=== PATIENT | male | born 1940 | race Caucasian/White ===

== ENCOUNTER 2016-09-26 07:19 | Emergency (ER) | payer MEDICARE, OTHER ==
[~2016-09-26] VITALS: Ht 177.8 cm; Wt 81.8 kg
[~2016-09-26 07:19] MED LIST: ASPIRIN E.C. 8181 MG PO; GLUCOPHAGE500 MG/TAB PO; GRALISE300 MG PO; LASIX 40MG TABL40 MG PO; LIPITOR 80MG80 MG PO; NITROSTAT0.4 MG/TAB PO; PLAVIX 75MG TAB75 MG PO; PLENDIL10 MG PO; PRILOSEC 20MG20 MG PO; PRINIVIL2.5 MG PO; TOPROL XL 50MG50 MG PO; ULTRAM 50MG TAB50 MG PO
[2016-09-26 07:21] VITALS: TEMP 97.7
[2016-09-26 08:13] LABS: ARTERIAL BLD GAS O2 SATURATION 87.7 % (92-100); ARTERIAL BLD GAS TCO2 CT 22.8; ARTERIAL BLOOD GAS BASE EXCESS -2.8 (-2-2); ARTERIAL BLOOD GAS HCO3 21.7 meq/L (22-26); ARTERIAL BLOOD GAS PHT 7.39 C (7.35-7.45); ARTERIAL BLOOD GAS PO2 50.7 mmHg (80-100); ARTERIAL BLOOD GAS PO2T 50.7 (80-100); ARTERIAL BLOOD GAS pH 7.39 (7.35-7.45); OXYHEMOGLOBIN 85.9 %
[2016-09-26 08:14] LABS: ATS? YES
[2016-09-26 08:19] LABS: BASO % 0.2 % (0.0-2.0); EOS # 0.1 (0.0-0.7); EOS % 0.4 % (0-4.0); GRAN # 11.5 (1.4-6.5); LYMPH # 1.4 (1.2-3.4); LYMPH % 9.9 % (20.0-51.0); MEAN CELL VOLUME 87 fl (80.0-100.0); MEAN CORPUSCULAR HGB CONC 32 g/dl (33.0-37.0); MEAN PLATELET VOLUME 13.5 fl (7.4-10.4); MONO # 0.8 (0.1-0.6); PLATELET COUNT 161 K/mm3 (130-400); RED BLOOD COUNT 3.73 M/mm3 (4.20-5.60); REDCELL DISTRIBUTION WIDTH-CV 15.1 % (11.5-14.5); WHITE BLOOD COUNT 13.9 K/mm3 (4.8-10.8)
[2016-09-26 08:20] VITALS: BP 137/53; PULSE 58
[2016-09-26 08:20] LABS: HEMATOCRIT 32.5 % (42.0-52.0); HEMOGLOBIN 10.5 g/dl (13.5-18.0); MEAN CORPUSCULAR HEMOGLOBIN 28 pg (27.0-31.0)
[2016-09-26 08:24] LABS: ADJUSTED CALCIUM 8.9 mg/dL (8.4-10.2); BILIRUBIN,TOTAL 0.7 mg/dL (0.0-1.0); CALCIUM 8.1 mg/dL (8.4-10.2); CREATININE, serum 1.09 mg/dL (0.66-1.25); POTASSIUM 3.4 mmol/L (3.4-5.0); TOTAL PROTEIN 5.6 gm/dL (6.4-8.2)
[2016-09-26 08:35] LABS: TROPONIN-I 0.016 ng/mL (0.000-0.034)
== END 2016-09-26 08:32 | disposition short-term general hospital (02) ==
LOC: COL.ER 07:19
PROVIDERS: Family Medicine
DX: I63.9 Cerebral infarction, unspecified (principal)
CPT/HCPCS: J1644; J3101; J7030

== ENCOUNTER 2016-12-04 07:12 | Emergency (ER) | payer MEDICARE, OTHER ==
[~2016-12-04] VITALS: Ht 177.8 cm; Wt 81.8 kg
[2016-12-04 07:14] VITALS: TEMP 98.7
[2016-12-04 07:50] LABS: BASO # 0.1 (0.0-0.2); BASO % 0.4 % (0.0-2.0); EOS # 0.1 (0.0-0.7); EOS % 0.7 % (0-4.0); GRAN # 9.6 (1.4-6.5); GRAN % 81.9 % (42.2-75.2); LYMPH # 1.2 (1.2-3.4); LYMPH % 10.5 % (20.0-51.0); MEAN CELL VOLUME 87 fl (80.0-100.0); MEAN CORPUSCULAR HGB CONC 32 g/dl (33.0-37.0); MONO # 0.7 (0.1-0.6); MONO % 6.1 % (1.7-9.3); PLATELET COUNT 178 K/mm3 (130-400); RED BLOOD COUNT 4.08 M/mm3 (4.20-5.60); REDCELL DISTRIBUTION WIDTH-CV 15.3 % (11.5-14.5); WHITE BLOOD COUNT 11.7 K/mm3 (4.8-10.8)
[2016-12-04 08:06] LABS: ADJUSTED CALCIUM 9.3 mg/dL (8.4-10.2); ALBUMIN 3.9 gm/dL (3.5-5.0); BILIRUBIN,TOTAL 0.7 mg/dL (0.0-1.0); C-REACTIVE PROTEIN 0.7 mg/dL (0.0-0.9); CALCIUM 9.2 mg/dL (8.4-10.2); CREATININE, serum 1.18 mg/dL (0.66-1.25); POTASSIUM 3.9 mmol/L (3.4-5.0); TOTAL PROTEIN 6.7 gm/dL (6.4-8.2)
[2016-12-04 08:15] LABS: TROPONIN-I 0.021 ng/mL (0.000-0.034)
[2016-12-04 08:20] LABS: PROLACTIN 43.9 ng/mL (3.7-17.9)
[2016-12-04 08:29] LABS: HEMATOCRIT 35.4 % (42.0-52.0); HEMOGLOBIN 11.3 g/dl (13.5-18.0); MEAN CORPUSCULAR HEMOGLOBIN 28 pg (27.0-31.0)
[2016-12-04 08:54] LABS: PROTHROMBIN TIME 11.6 SECONDS (9.7-12.8)
[2016-12-04 08:57] LABS: PARTIAL THROMBOPLASTIN TIME 31.9 SECONDS (26.0-37.0)
[2016-12-04 09:29] VITALS: BP 171/63; PULSE 62
== END 2016-12-04 10:00 | disposition left against medical advice (07) ==
LOC: COL.ER 07:12
PROVIDERS: Emergency Medicine
DX: R55 Syncope and collapse (principal); Z53.21 Procedure and treatment not carried out due to patient leaving prior to being seen by health care provider; I25.10 Atherosclerotic heart disease of native coronary artery without angina pectoris; E11.9 Type 2 diabetes mellitus without complications; I10 Essential (primary) hypertension; I48.91 Unspecified atrial fibrillation; F17.210 Nicotine dependence, cigarettes, uncomplicated; Z95.5 Presence of coronary angioplasty implant and graft; Z79.84 Long term (current) use of oral hypoglycemic drugs; Z79.02 Long term (current) use of antithrombotics/antiplatelets
CPT/HCPCS: J7030

== ENCOUNTER 2017-01-25 05:59 | Emergency (ER) | payer MEDICARE, OTHER ==
[2017-01-25 06:29] VITALS: TEMP 96.6
[2017-01-25 06:37] LABS: BASO % 0.5 % (0.0-2.0); EOS # 0.2 (0.0-0.7); EOS % 1.9 % (0-4.0); GRAN # 6.2 (1.4-6.5); GRAN % 72.7 % (42.2-75.2); LYMPH # 1.3 (1.2-3.4); LYMPH % 15.5 % (20.0-51.0); MEAN CELL VOLUME 83 fl (80.0-100.0); MEAN CORPUSCULAR HGB CONC 33 g/dl (33.0-37.0); MEAN PLATELET VOLUME 11.7 fl (7.4-10.4); MONO # 0.8 (0.1-0.6); PLATELET COUNT 230 K/mm3 (130-400); REDCELL DISTRIBUTION WIDTH-CV 15.7 % (11.5-14.5); WHITE BLOOD COUNT 8.5 K/mm3 (4.8-10.8)
[2017-01-25 06:39] LABS: HEMOGLOBIN 9.8 g/dl (13.5-18.0); MEAN CORPUSCULAR HEMOGLOBIN 27 pg (27.0-31.0)
[2017-01-25 06:48] LABS: ADJUSTED CALCIUM 9.1 mg/dL (8.4-10.2); ALANINE AMINOTRANSFERASE 19 U/L (21-72); ALBUMIN 3.6 gm/dL (3.5-5.0); ALKALINE PHOSPHATASE 57 U/L (50-136); ANION GAP 10 mmol/L (7-16); BILIRUBIN,TOTAL 0.6 mg/dL (0.0-1.0); BLOOD UREA NITROGEN 21 mg/dL (9-20); CALCIUM 8.8 mg/dL (8.4-10.2); CARBON DIOXIDE 27 mmol/L (22-30); CHLORIDE 101 mmol/L (98-107); CREATININE, serum 1.04 mg/dL (0.66-1.25); GLUCOSE 128 mg/dL (74-106); POTASSIUM 4.3 mmol/L (3.4-5.0); SODIUM 138 mmol/L (137-145); TOTAL PROTEIN 6.5 gm/dL (6.4-8.2)
[2017-01-25 06:59] LABS: TROPONIN-I 0.012 ng/mL (0.000-0.034)
[2017-01-25 07:43] LABS: PH 7 (5-8); SQUAMOUS EPITHELIAL None Seen /hpf; URINE APPEARANCE Clear; URINE BACTERIA None Seen /hpf; URINE BILIRUBIN Negative (NEGATIVE); URINE BLOOD Negative (NEGATIVE); URINE COLOR Yellow; URINE GLUCOSE Negative (NEGATIVE); URINE KETONE Negative (NEGATIVE); URINE RBC None Seen /hpf; URINE UROBILINOGEN >=4.0 mg/dL (NEGATIVE); URINE WBC 0-2 /hpf
[2017-01-25 08:30] LABS: CREATINE KINASE 48 U/L (55-170)
[2017-01-25 13:46] VITALS: BP 186/80; PULSE 64
== END 2017-01-25 14:00 | disposition home or self-care (01) ==
LOC: COL.ER 05:59
PROVIDERS: Emergency Medicine
DX: R53.1 Weakness (principal); E11.9 Type 2 diabetes mellitus without complications; I10 Essential (primary) hypertension; M48.56XD Collapsed vertebra, not elsewhere classified, lumbar region, subsequent encounter for fracture with routine healing; I51.9 Heart disease, unspecified; Z79.84 Long term (current) use of oral hypoglycemic drugs
CPT/HCPCS: J7030

== ENCOUNTER 2017-02-13 17:45 | Emergency (ER) | payer MEDICARE, OTHER ==
[2017-02-13 17:46] VITALS: TEMP 97
[2017-02-13 20:16] LABS: BASO % 0.2 % (0.0-2.0); GRAN # 9.9 (1.4-6.5); GRAN % 84.6 % (42.2-75.2); LYMPH # 0.8 (1.2-3.4); LYMPH % 6.7 % (20.0-51.0); MEAN CELL VOLUME 83 fl (80.0-100.0); MEAN CORPUSCULAR HGB CONC 32 g/dl (33.0-37.0); MEAN PLATELET VOLUME 12.3 fl (7.4-10.4); MONO # 0.9 (0.1-0.6); MONO % 7.8 % (1.7-9.3); PLATELET COUNT 246 K/mm3 (130-400); RED BLOOD COUNT 3.94 M/mm3 (4.20-5.60); REDCELL DISTRIBUTION WIDTH-CV 15.4 % (11.5-14.5); WHITE BLOOD COUNT 11.7 K/mm3 (4.8-10.8)
[2017-02-13 20:19] LABS: HEMATOCRIT 32.7 % (42.0-52.0); HEMOGLOBIN 10.6 g/dl (13.5-18.0); MEAN CORPUSCULAR HEMOGLOBIN 27 pg (27.0-31.0)
[2017-02-13 20:24] LABS: INR 1.1 (0.8-3.0); PROTHROMBIN TIME 12.6 SECONDS (9.7-12.8)
[2017-02-13 20:26] LABS: PARTIAL THROMBOPLASTIN TIME 31.4 SECONDS (26.0-37.0)
[2017-02-13 20:31] LABS: ADJUSTED CALCIUM 9.5 mg/dL (8.4-10.2); ALBUMIN 3.8 gm/dL (3.5-5.0); BILIRUBIN,TOTAL 1.1 mg/dL (0.0-1.0); CALCIUM 9.3 mg/dL (8.4-10.2); CREATININE, serum 0.87 mg/dL (0.66-1.25); POTASSIUM 3.5 mmol/L (3.4-5.0); TOTAL PROTEIN 6.9 gm/dL (6.4-8.2)
[2017-02-13 20:47] LABS: TROPONIN-I 0.065 ng/mL (0.000-0.034)
[2017-02-13 23:29] VITALS: BP 122/76; PULSE 80
== END 2017-02-13 23:30 | disposition short-term general hospital (02) ==
LOC: COL.ER 17:45
PROVIDERS: Emergency Medicine
DX: I63.9 Cerebral infarction, unspecified (principal); R53.1 Weakness; R53.81 Other malaise; I25.2 Old myocardial infarction; Z86.73 Personal history of transient ischemic attack (TIA), and cerebral infarction without residual deficits; S80.212A Abrasion, left knee, initial encounter; S80.211A Abrasion, right knee, initial encounter; X58.XXXA Exposure to other specified factors, initial encounter; Y92.009 Unspecified place in unspecified non-institutional (private) residence as the place of occurrence of the external cause; R40.2412 Glasgow coma scale score 13-15, at arrival to emergency department; Z79.02 Long term (current) use of antithrombotics/antiplatelets; Z79.82 Long term (current) use of aspirin
CPT/HCPCS: J7030

== ENCOUNTER 2017-03-17 11:12 | Inpatient (IN) | payer MEDICARE, OTHER ==
[~2017-03-17] VITALS: Ht 180.3 cm; Wt 78.3 kg
[2017-03-17] VITALS (345 sets, daily range): BP systolic 108–167; BP diastolic 28–70; PULSE 55–93; TEMP 98–98.8; O2SAT 86–100
[2017-03-17 12:12] LABS: MEAN CELL VOLUME 88 fl (80.0-100.0); MEAN CORPUSCULAR HGB CONC 32 g/dl (33.0-37.0); MEAN PLATELET VOLUME 12.5 fl (7.4-10.4); PLATELET COUNT 255 K/mm3 (130-400); RED BLOOD COUNT 2.77 M/mm3 (4.20-5.60); REDCELL DISTRIBUTION WIDTH-CV 17.7 % (11.5-14.5)
[2017-03-17 12:14] LABS: INR 1.1 (0.8-3.0); PROTHROMBIN TIME 12.3 SECONDS (9.7-12.8)
[2017-03-17 12:16] LABS: HEMATOCRIT 24.5 % (42.0-52.0); HEMOGLOBIN 7.9 g/dl (13.5-18.0); MEAN CORPUSCULAR HEMOGLOBIN 29 pg (27.0-31.0); WHITE BLOOD COUNT 31.1 K/mm3 (4.8-10.8)
[2017-03-17 12:17] LABS: ADD PATHOLOGY DIFF REVIEW NO; PARTIAL THROMBOPLASTIN TIME 26.8 SECONDS (26.0-37.0)
[2017-03-17 12:26] LABS: ADJUSTED CALCIUM 9.4 mg/dL (8.4-10.2); ALBUMIN 3.3 gm/dL (3.5-5.0); BILIRUBIN,TOTAL 0.6 mg/dL (0.0-1.0); C-REACTIVE PROTEIN 6.7 mg/dL (0.0-0.9); CALCIUM 8.8 mg/dL (8.4-10.2); CREATININE, serum 1.48 mg/dL (0.66-1.25); TOTAL PROTEIN 6.2 gm/dL (6.4-8.2)
[2017-03-17 12:35] LABS: TROPONIN-I 0.026 ng/mL (0.000-0.034)
[2017-03-17 12:37] LABS: BAND 6 % (0-10); NEUTROPHILS 89 % (42.0-75.2); TOTAL CELLS COUNTED 100
[2017-03-17 12:40] LABS: MICROCYTOSIS 1+
[2017-03-17 12:41] LABS: PLATELET ESTIMATE INCREASED (NORMAL)
[2017-03-17] MEDS ORDERED: NOVOLOG 100U100 U/M1 SQ (14:49)
[2017-03-17] MEDS ORDERED: PROTONIX 40MG T40 MG PO (14:51)
[2017-03-17] MEDS ORDERED: COLACE 100100 MG/CAP PO (14:52)
[2017-03-17] MEDS ORDERED: ASPIRIN 32325 MG/TAB PO (14:52)
[2017-03-17] MEDS ORDERED: FERROUS SU325 MG/TAB PO (15:00)
[2017-03-17 18:01] LABS: PH 5 (5-8); SQUAMOUS EPITHELIAL None Seen /hpf; URINE APPEARANCE Clear; URINE BACTERIA None Seen /hpf; URINE BILIRUBIN Negative (NEGATIVE); URINE BLOOD 1+ (NEGATIVE); URINE COLOR Yellow; URINE GLUCOSE Negative (NEGATIVE); URINE KETONE Negative (NEGATIVE); URINE RBC 0-2 /hpf; URINE UROBILINOGEN Negative (NEGATIVE); URINE WBC 0-2 /hpf
[2017-03-17 18:01] LABS: ARTERIAL BLD GAS O2 SATURATION 99.1 % (92-100); ARTERIAL BLOOD GAS PHT 7.34 C (7.35-7.45); ARTERIAL BLOOD GAS pH 7.34 (7.35-7.45); OXYHEMOGLOBIN 96.9 %
[2017-03-17 18:02] LABS: ARTERIAL BLOOD GAS PO2 317.3 mmHg (80-100); ARTERIAL BLOOD GAS PO2T 317.3 (80-100); ATS? NO
[2017-03-17 18:06] LABS: VENOUS BLOOD GAS SAO2 70.6 % (60-80); VENOUS BLOOD GAS SITE CENTRAL LINE
[2017-03-17 22:42] LABS: VENOUS BLOOD GAS BE -14.8 (-4-4); VENOUS BLOOD GAS SITE CENTRAL LINE
[2017-03-18] VITALS (1277 sets, daily range): BP systolic 120–181; BP diastolic 32–87; PULSE 59–95; TEMP 98–99.7; O2SAT 65–100
[2017-03-18 03:05] LABS: VENOUS BLOOD GAS BE -6.3 (-4-4); VENOUS BLOOD GAS SAO2 73.5 % (60-80); VENOUS BLOOD GAS SITE CENTRAL LINE
[2017-03-18 04:56] LABS: MEAN CELL VOLUME 90 fl (80.0-100.0); MEAN CORPUSCULAR HGB CONC 32 g/dl (33.0-37.0); MEAN PLATELET VOLUME 12.3 fl (7.4-10.4); RED BLOOD COUNT 2.21 M/mm3 (4.20-5.60); REDCELL DISTRIBUTION WIDTH-CV 16.9 % (11.5-14.5); WHITE BLOOD COUNT 12.8 K/mm3 (4.8-10.8)
[2017-03-18 05:01] LABS: HEMATOCRIT 19.9 % (42.0-52.0); INR 1.2 (0.8-3.0); MEAN CORPUSCULAR HEMOGLOBIN 29 pg (27.0-31.0); PLATELET COUNT 145 K/mm3 (130-400); PROTHROMBIN TIME 13.5 SECONDS (9.7-12.8)
[2017-03-18 05:02] LABS: HEMOGLOBIN 6.4 g/dl (13.5-18.0)
[2017-03-18 05:08] LABS: ADJUSTED CALCIUM 8.8 mg/dL (8.4-10.2); BILIRUBIN,TOTAL 0.5 mg/dL (0.0-1.0); CALCIUM 7.2 mg/dL (8.4-10.2); CREATININE, serum 1.16 mg/dL (0.66-1.25); MAGNESIUM 1.8 mg/dL (1.6-2.3); PHOSPHOROUS 3.7 mg/dL (2.5-4.5); POTASSIUM 3.6 mmol/L (3.4-5.0); TOTAL PROTEIN 4.4 gm/dL (6.4-8.2)
[2017-03-18 05:10] LABS: ARTERIAL BLD GAS O2 SATURATION 97.5 % (92-100); ARTERIAL BLD GAS TCO2 CT 19.6; ARTERIAL BLOOD GAS HCO3 18.6 meq/L (22-26); ARTERIAL BLOOD GAS pH 7.38 (7.35-7.45); OXYHEMOGLOBIN 95.7 %
[2017-03-18 05:10] LABS: ADD PATHOLOGY DIFF REVIEW NO
[2017-03-18 05:11] LABS: ALLEN TEST NO; ARTERIAL BLOOD GAS PO2 138.7 mmHg (80-100); ATS? NO
[2017-03-18 05:14] LABS: BAND 54 % (0-10); NEUTROPHILS 41 % (42.0-75.2); TOTAL CELLS COUNTED 100
[2017-03-18 05:15] LABS: PLATELET ESTIMATE NORMAL (NORMAL)
[2017-03-18 05:16] LABS: ANISOCYTOSIS 1+
[2017-03-18 06:54] LABS: VENOUS BLOOD GAS BE -5.1 (-4-4); VENOUS BLOOD GAS SAO2 73.2 % (60-80)
[2017-03-18 06:55] LABS: VENOUS BLOOD GAS SITE CENTRAL LINE
[2017-03-18 07:49] LABS: HEMATOCRIT 22.6 % (42.0-52.0); HEMOGLOBIN 7.5 g/dl (13.5-18.0)
[2017-03-18 13:53] LABS: HEMATOCRIT 23.8 % (42.0-52.0); HEMOGLOBIN 7.8 g/dl (13.5-18.0)
[2017-03-19] VITALS (1286 sets, daily range): BP systolic 107–177; BP diastolic 54–89; PULSE 71–99; TEMP 97.8–99.2; O2SAT 49–100
[2017-03-19 06:23] LABS: BASO % 0.1 % (0.0-2.0); GRAN # 11.7 (1.4-6.5); GRAN % 91.6 % (42.2-75.2); LYMPH # 0.4 (1.2-3.4); LYMPH % 3.3 % (20.0-51.0); MEAN CELL VOLUME 86 fl (80.0-100.0); MEAN CORPUSCULAR HGB CONC 33 g/dl (33.0-37.0); MEAN PLATELET VOLUME 12.5 fl (7.4-10.4); MONO # 0.5 (0.1-0.6); MONO % 4.1 % (1.7-9.3); PLATELET COUNT 164 K/mm3 (130-400); RED BLOOD COUNT 2.72 M/mm3 (4.20-5.60); WHITE BLOOD COUNT 12.8 K/mm3 (4.8-10.8)
[2017-03-19 06:24] LABS: HEMATOCRIT 23.5 % (42.0-52.0); HEMOGLOBIN 7.7 g/dl (13.5-18.0); MEAN CORPUSCULAR HEMOGLOBIN 28 pg (27.0-31.0)
[2017-03-19 06:28] LABS: INR 1.1 (0.8-3.0); PROTHROMBIN TIME 11.9 SECONDS (9.7-12.8)
[2017-03-19 06:32] LABS: ADJUSTED CALCIUM 9.4 mg/dL (8.4-10.2); ALBUMIN 2.1 gm/dL (3.5-5.0); BILIRUBIN,TOTAL 0.7 mg/dL (0.0-1.0); CALCIUM 7.9 mg/dL (8.4-10.2); CREATININE, serum 1.01 mg/dL (0.66-1.25); MAGNESIUM 1.9 mg/dL (1.6-2.3); PHOSPHOROUS 3.1 mg/dL (2.5-4.5); POTASSIUM 3.1 mmol/L (3.4-5.0); TOTAL PROTEIN 4.7 gm/dL (6.4-8.2)
[2017-03-19 22:20] LABS: CALCIUM 7.3 mg/dL (8.4-10.2); CREATININE, serum 0.92 mg/dL (0.66-1.25); POTASSIUM 3.8 mmol/L (3.4-5.0)
[2017-03-20] VITALS (1345 sets, daily range): BP systolic 123–161; BP diastolic 48–98; PULSE 74–90; TEMP 97.1–99.2; O2SAT 31–100
[2017-03-20 05:43] LABS: BASO % 0.1 % (0.0-2.0); GRAN # 7.7 (1.4-6.5); GRAN % 84.1 % (42.2-75.2); LYMPH # 0.8 (1.2-3.4); LYMPH % 8.2 % (20.0-51.0); MEAN CELL VOLUME 85 fl (80.0-100.0); MEAN CORPUSCULAR HGB CONC 33 g/dl (33.0-37.0); MEAN PLATELET VOLUME 11.6 fl (7.4-10.4); MONO # 0.7 (0.1-0.6); MONO % 7.1 % (1.7-9.3); PLATELET COUNT 186 K/mm3 (130-400); REDCELL DISTRIBUTION WIDTH-CV 18.2 % (11.5-14.5); WHITE BLOOD COUNT 9.2 K/mm3 (4.8-10.8)
[2017-03-20 05:46] LABS: HEMATOCRIT 30.5 % (42.0-52.0); HEMOGLOBIN 10.1 g/dl (13.5-18.0); MEAN CORPUSCULAR HEMOGLOBIN 28 pg (27.0-31.0)
[2017-03-20 05:50] LABS: INR 1.1 (0.8-3.0); PROTHROMBIN TIME 11.9 SECONDS (9.7-12.8)
[2017-03-20 06:43] LABS: ADJUSTED CALCIUM 9.3 mg/dL (8.4-10.2); ALBUMIN 2.3 gm/dL (3.5-5.0); BILIRUBIN,TOTAL 0.8 mg/dL (0.0-1.0); CALCIUM 7.9 mg/dL (8.4-10.2); CREATININE, serum 1.01 mg/dL (0.66-1.25); MAGNESIUM 1.9 mg/dL (1.6-2.3); PHOSPHOROUS 3.1 mg/dL (2.5-4.5); TOTAL PROTEIN 4.9 gm/dL (6.4-8.2)
[2017-03-20 06:46] LABS: POTASSIUM 2.8 mmol/L (3.4-5.0)
[2017-03-20 14:45] LABS: ADJUSTED CALCIUM 9.4 mg/dL (8.4-10.2); ALBUMIN 2.4 gm/dL (3.5-5.0); CALCIUM 8.1 mg/dL (8.4-10.2); CREATININE, serum 0.97 mg/dL (0.66-1.25); MAGNESIUM 1.9 mg/dL (1.6-2.3); PHOSPHOROUS 2.5 mg/dL (2.5-4.5); POTASSIUM 3.8 mmol/L (3.4-5.0); TOTAL PROTEIN 5.1 gm/dL (6.4-8.2)
[2017-03-21] VITALS (867 sets, daily range): BP systolic 148–177; BP diastolic 68–86; PULSE 63–88; TEMP 97.5–99.5; O2SAT 72–100
[2017-03-21 05:26] LABS: BASO % 0.2 % (0.0-2.0); EOS % 0.6 % (0-4.0); GRAN # 4.7 (1.4-6.5); GRAN % 72.2 % (42.2-75.2); HEMATOCRIT 36.3 % (42.0-52.0); LYMPH # 0.8 (1.2-3.4); LYMPH % 12.3 % (20.0-51.0); MEAN CELL VOLUME 84 fl (80.0-100.0); MEAN CORPUSCULAR HEMOGLOBIN 28 pg (27.0-31.0); MEAN CORPUSCULAR HGB CONC 33 g/dl (33.0-37.0); MONO # 0.9 (0.1-0.6); MONO % 14.2 % (1.7-9.3); PLATELET COUNT 231 K/mm3 (130-400); RED BLOOD COUNT 4.32 M/mm3 (4.20-5.60); REDCELL DISTRIBUTION WIDTH-CV 17.8 % (11.5-14.5); WHITE BLOOD COUNT 6.5 K/mm3 (4.8-10.8)
[2017-03-21 05:36] LABS: CREATININE, serum 0.84 mg/dL (0.66-1.25); PHOSPHOROUS 3.4 mg/dL (2.5-4.5); POTASSIUM 3.4 mmol/L (3.4-5.0)
[2017-03-22 01:07] VITALS: BP 156/57; PULSE 68
[2017-03-22 06:13] VITALS: BP 169/82; PULSE 56
[2017-03-22 06:45] LABS: CALCIUM 7.9 mg/dL (8.4-10.2); CREATININE, serum 0.96 mg/dL (0.66-1.25); MAGNESIUM 2.2 mg/dL (1.6-2.3); POTASSIUM 3.9 mmol/L (3.4-5.0)
[2017-03-22 09:44] VITALS: BP 188/73; PULSE 65; TEMP 98.1
[2017-03-22 13:41] VITALS: BP 184/91; PULSE 53; TEMP 97.5
[2017-03-22 17:58] VITALS: BP 184/67; PULSE 64
[2017-03-22 19:46] VITALS: BP 157/51; PULSE 56; TEMP 97.7
[2017-03-23 00:19] VITALS: BP 183/71; PULSE 65; TEMP 96.7
[2017-03-23 05:58] VITALS: BP 172/66; PULSE 66; TEMP 96.7
[2017-03-23 07:30] LABS: CALCIUM 7.8 mg/dL (8.4-10.2); CREATININE, serum 1.03 mg/dL (0.66-1.25); MAGNESIUM 2.2 mg/dL (1.6-2.3); PHOSPHOROUS 4.1 mg/dL (2.5-4.5); POTASSIUM 3.6 mmol/L (3.4-5.0)
[2017-03-23 09:06] VITALS: BP 157/107; PULSE 67; TEMP 97.5
[2017-03-23 13:56] VITALS: BP 150/68; PULSE 79; TEMP 98.2
[2017-03-23 18:48] VITALS: BP 146/57; PULSE 82; TEMP 97.6
[2017-03-23 22:26] VITALS: BP 138/47; PULSE 54; TEMP 98.9
[2017-03-24 01:28] VITALS: BP 159/53; PULSE 71; TEMP 99.2
[2017-03-24 06:21] VITALS: BP 172/60; PULSE 71; TEMP 98.5
[2017-03-24 07:26] LABS: BASO % 0.2 % (0.0-2.0); EOS # 0.1 (0.0-0.7); EOS % 0.8 % (0-4.0); GRAN # 9.3 (1.4-6.5); GRAN % 79.3 % (42.2-75.2); LYMPH # 1.2 (1.2-3.4); LYMPH % 10.1 % (20.0-51.0); MEAN CELL VOLUME 88 fl (80.0-100.0); MEAN CORPUSCULAR HGB CONC 32 g/dl (33.0-37.0); MEAN PLATELET VOLUME 12.7 fl (7.4-10.4); MONO % 8.4 % (1.7-9.3); PLATELET COUNT 231 K/mm3 (130-400); RED BLOOD COUNT 3.69 M/mm3 (4.20-5.60); REDCELL DISTRIBUTION WIDTH-CV 18.5 % (11.5-14.5); WHITE BLOOD COUNT 11.8 K/mm3 (4.8-10.8)
[2017-03-24 07:28] LABS: HEMATOCRIT 32.6 % (42.0-52.0); HEMOGLOBIN 10.4 g/dl (13.5-18.0); MEAN CORPUSCULAR HEMOGLOBIN 28 pg (27.0-31.0)
[2017-03-24 07:31] LABS: CALCIUM 7.6 mg/dL (8.4-10.2); CREATININE, serum 1.02 mg/dL (0.66-1.25); MAGNESIUM 2.1 mg/dL (1.6-2.3)
[2017-03-24 07:41] LABS: PHOSPHOROUS 3.4 mg/dL (2.5-4.5)
[2017-03-24 10:29] VITALS: BP 173/51; PULSE 53; TEMP 98.6
[2017-03-24 13:40] VITALS: BP 163/92; PULSE 65; TEMP 98.1
[2017-03-24 17:56] VITALS: BP 153/48; PULSE 61; TEMP 98.8
[2017-03-24 21:05] VITALS: BP 151/72; PULSE 93; TEMP 98.3
[2017-03-25 01:26] VITALS: BP 158/66; PULSE 80; TEMP 97.7
[2017-03-25 05:26] VITALS: BP 133/42; PULSE 80; TEMP 97.6
[2017-03-25 07:19] LABS: BASO % 0.1 % (0.0-2.0); EOS # 0.2 (0.0-0.7); EOS % 1.7 % (0-4.0); GRAN % 77.3 % (42.2-75.2); LYMPH # 1.1 (1.2-3.4); LYMPH % 10.7 % (20.0-51.0); MEAN CELL VOLUME 90 fl (80.0-100.0); MEAN CORPUSCULAR HGB CONC 32 g/dl (33.0-37.0); MEAN PLATELET VOLUME 12.9 fl (7.4-10.4); MONO # 0.9 (0.1-0.6); MONO % 8.9 % (1.7-9.3); PLATELET COUNT 235 K/mm3 (130-400); RED BLOOD COUNT 3.39 M/mm3 (4.20-5.60); REDCELL DISTRIBUTION WIDTH-CV 18.6 % (11.5-14.5); WHITE BLOOD COUNT 10.3 K/mm3 (4.8-10.8)
[2017-03-25 07:26] LABS: HEMATOCRIT 30.5 % (42.0-52.0); HEMOGLOBIN 9.6 g/dl (13.5-18.0); MEAN CORPUSCULAR HEMOGLOBIN 28 pg (27.0-31.0)
[2017-03-25 07:32] LABS: MAGNESIUM 2.1 mg/dL (1.6-2.3); PHOSPHOROUS 3.2 mg/dL (2.5-4.5)
[2017-03-25 09:03] VITALS: BP 173/74; PULSE 73; TEMP 97.9
[2017-03-25 13:31] VITALS: BP 132/86; PULSE 80; TEMP 98.8
[2017-03-25 17:31] VITALS: BP 130/46; PULSE 64; TEMP 98.2
[2017-03-25 21:07] VITALS: BP 97/55; PULSE 74; TEMP 98.5
[2017-03-26 02:00] VITALS: BP 113/51; PULSE 79; TEMP 99.6
[2017-03-26 04:55] VITALS: BP 121/84; PULSE 92; TEMP 98.1
[2017-03-26 10:45] VITALS: BP 121/49; PULSE 74
[2017-03-26] MEDS ORDERED: FLAGYL500 MG PO (12:13)
[2017-03-26] MEDS ORDERED: CEFTIN500 MG PO (12:14)
[2017-03-26] MEDS ORDERED: LEVEMIR FLEX100 U/ML SQ (12:14)
[2017-03-26] MEDS ORDERED: NOVOLOG 100U100 U/M1 SQ (12:15)
[2017-03-26] MEDS ORDERED: ASPIRIN 81M81 MG/TA2 PO (12:17)
[2017-03-26] MEDS ORDERED: LASIX 20MG TABL20 MG PO (12:17)
[2017-03-26] MEDS ORDERED: ZESTRIL2.5 MG PO (12:18)
[2017-03-26] MEDS ORDERED: NORVASC 5MG5 MG/TAB PO (12:18)
[2017-03-26] MEDS ORDERED: TOPROL XL 50MG50 MG PO (12:19)
[2017-03-26] MEDS ORDERED: IMDUR 30MG30 MG/TAB PO (12:19)
[2017-03-26] MEDS ORDERED: NATURAL IRON65 MG PO (12:26)
[2017-03-26] MEDS ORDERED: IPRATROPIUM BROM3 M1 IH (12:26)
[2017-03-26 13:58] VITALS: BP 121/49; PULSE 74; TEMP 98.1
== END 2017-03-26 15:24 | DRG 853 ==
LOC: COL.ER 11:12 → ICU 13:54 → SURG 03-21 15:35
PROVIDERS: Emergency Medicine; Internal Medicine; Internal Medicine Pulmonary Disease; Nurse Practitioner Family; Surgery
PROC: 0DTF0ZZ Resection of Right Large Intestine, Open Approach (ICD-10-PCS; principal; 2017-03-17 15:00)
PROC: 0DB90ZZ Excision of Duodenum, Open Approach (ICD-10-PCS; 2017-03-17 15:00)
DX: A41.9 Sepsis, unspecified organism (principal); K65.0 Generalized (acute) peritonitis; E43 Unspecified severe protein-calorie malnutrition; I21.4 Non-ST elevation (NSTEMI) myocardial infarction; C18.2 Malignant neoplasm of ascending colon; C77.2 Secondary and unspecified malignant neoplasm of intra-abdominal lymph nodes; D62 Acute posthemorrhagic anemia; I69.351 Hemiplegia and hemiparesis following cerebral infarction affecting right dominant side; J44.9 Chronic obstructive pulmonary disease, unspecified; I12.9 Hypertensive chronic kidney disease with stage 1 through stage 4 chronic kidney disease, or unspecified chronic kidney disease; E11.22 Type 2 diabetes mellitus with diabetic chronic kidney disease; N18.2 Chronic kidney disease, stage 2 (mild); I48.0 Paroxysmal atrial fibrillation; I25.10 Atherosclerotic heart disease of native coronary artery without angina pectoris; F03.90 Unspecified dementia, unspecified severity, without behavioral disturbance, psychotic disturbance, mood disturbance, and anxiety; Z95.5 Presence of coronary angioplasty implant and graft; Z87.891 Personal history of nicotine dependence; E87.6 Hypokalemia
CPT/HCPCS: 99233-AI; 99239; A4217; A4315; B4178; C1751; C9113; J0330; J0610; J0694; J1160; J1644; J1650; J1720; J1815; J1940; J2270; J2405; J2543; J2704; J3010; J3411; J3475; J3480; J7030; J7040; J7050; J7131; P9016; Q9967

== ENCOUNTER → 2017-04-07 | Outpatient (REF) ==
[~2017-04-07] MED LIST changes: +ASPIRIN 32325 MG/TAB PO; +ASPIRIN 81M81 MG/TA2 PO; +CEFTIN500 MG PO; +COLACE 100100 MG/CAP PO; +FERROUS SU325 MG/TAB PO; +FLAGYL500 MG PO; +IMDUR 30MG30 MG/TAB PO; +IPRATROPIUM BROM3 M1 IH; +LASIX 20MG TABL20 MG PO; +LEVEMIR FLEX100 U/ML SQ; +NATURAL IRON65 MG PO; +NORVASC 5MG5 MG/TAB PO; +NOVOLOG 100U100 U/M1 SQ; +PROTONIX 40MG T40 MG PO; +ZESTRIL2.5 MG PO
== END ==
LOC: ZAIV 06:00
DX: Z02.89 Encounter for other administrative examinations (principal)